=== PATIENT | female | born 1995 | race American Indian/Alaskan Native ===

== ENCOUNTER 2019-09-20 10:50 | Emergency (ER) | payer OTHER ==
[2019-09-20 11:01] VITALS: BP 119/74; PULSE 90; TEMP 98.6; BMI 31.3
[2019-09-20] MEDS ORDERED: ACETAMINOPHEN 325 MG TABLET (FP) PO ONE (11:33)
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
[2019-09-20] MEDS ORDERED: ACETAMINOPHEN 325 MG TABLET (FP) ONE (11:44)
[2019-09-20 11:53] LABS: URINE APPEARANCE CLEAR; URINE BILIRUBIN NEGATIVE (NEGATIVE); URINE COLOR YELLOW; URINE GLUCOSE (UA) NEGATIVE (NEGATIVE); URINE KETONE NEGATIVE (NEGATIVE); URINE LEUK ESTERASE 2+ (NEGATIVE); URINE NITRITE NEGATIVE (NEGATIVE); URINE PROTEIN NEGATIVE (NEGATIVE); URINE UROBILINOGEN 0.2 mg/dL (0.2-1.0)
[2019-09-20] MEDS ORDERED: FLUCONAZOLE 50 MG TABLET PO ONE (12:13)
[2019-09-20] MEDS ORDERED: METHOCARBAMOL 500 MG TABLET PO ONE (12:13)
[2019-09-20 12:14] LABS: EPI CELLS 0-5 /HPF (0-5/HPF); HYALINE CASTS 0-8 /lpf (0-8); URINE BACTERIA POSITIVE /hpf (NEGATIVE); URINE RBC 0-4 /hpf (0-4)
[2019-09-20] MEDS ORDERED: IBUPROFEN 400 MG TABLET (FP) PO ONE (12:23)
[2019-09-20] MEDS ORDERED: METHOCARBAMOL 500 MG TABLET ONE (12:24)
[2019-09-20] MEDS ORDERED: FLUCONAZOLE 150 MG TABLET PO ONE (12:24)
[2019-09-20] MEDS: IBUPROFEN 400 MG TABLET (FP) PO ONE ×2 (12:24→12:31)
[2019-09-20] MEDS ORDERED: KETOROLAC TROMETHAMINE 30 MG/1 ML VIAL ONE (12:27)
[2019-09-20] MEDS ORDERED: KETOROLAC TROMETHAMINE 30 MG/1 ML VIAL IM ONE (12:27)
== END 2019-09-20 12:43 | disposition home or self-care (01) ==
LOC: JERFT 10:50
PROC: 3E0233Z Introduction of Anti-inflammatory into Muscle, Percutaneous Approach (ICD-10-PCS; principal; 2019-09-20)
DX: V43.52XA Car driver injured in collision with other type car in traffic accident, initial encounter (principal); Y92.414 Local residential or business street as the place of occurrence of the external cause; Y93.89 Activity, other specified; Y99.8 Other external cause status; B37.3 Candidiasis of vulva and vagina
CPT/HCPCS: 81003; 84703; 87086; 99283-25

== ENCOUNTER 2019-09-22 13:08 | Emergency (ER) | payer OTHER ==
[2019-09-22 13:13] VITALS: BP 131/78; PULSE 87; TEMP 98.4; BMI 31.3
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
[2019-09-22] MEDS ORDERED: IBUPROFEN 600 MG TABLET (FP) PO ONE ×2 (13:52→13:54)
== END 2019-09-22 14:12 | disposition home or self-care (01) ==
LOC: JERFT 13:08
DX: V49.9XXA Car occupant (driver) (passenger) injured in unspecified traffic accident, initial encounter (principal); Y93.89 Activity, other specified; Y92.410 Unspecified street and highway as the place of occurrence of the external cause; R73.03 Prediabetes; S16.1XXA Strain of muscle, fascia and tendon at neck level, initial encounter
CPT/HCPCS: 82962; 99282-25